=== PATIENT | female | born 1955 | race Caucasian/White ===

== ENCOUNTER 2018-08-30 23:43 | Emergency (ER) | payer OTHER ==
[2018-08-31 00:14] LABS: ADD MAN DIFF? NO
[2018-08-31 00:16] LABS: BASOPHILS % 0.9 % (0.0-2.0); EOSINOPHILS # 0.1 10^3/ul (0.0-0.5); EOSINOPHILS % 2.7 % (0.0-7.0); HEMATOCRIT 34.4 % (37.0-47.0); HEMOGLOBIN 11.9 g/dl (12.0-16.0); LYMPHOCYTES # 0.7 10^3/ul (0.8-2.9); MEAN CORPUSCULAR HEMOGLOBIN 30.7 pg (29.0-33.0); MEAN CORPUSCULAR HGB CONC 34.6 g/dl (32.0-37.0); MEAN CORPUSCULAR VOLUME 88.9 fl (82.0-101.0); MEAN PLATELET VOLUME 11.4 fl (7.4-10.4); MONOCYTE # 0.4 10^3/ul (0.3-0.9); MONOCYTES % 11.8 % (0.0-11.0); NEUTROPHIL # 2.1 10^3/ul (1.6-7.5); NEUTROPHILS % 64.3 % (39.0-77.0); PLATELET COUNT 149 10^3/UL (140-415); RED BLOOD COUNT 3.87 10^6/ul (4.20-5.40); RED CELL DISTRIBUTION WIDTH 13.1 % (11.5-14.5)
[2018-08-31 00:16] LABS: WHITE BLOOD COUNT 3.3 10^3/ul (4.8-10.8)
[2018-08-31] MEDS: ONDANSETRON 4 MG INJ IV (00:17)
[2018-08-31] MEDS: SOD CHLORIDE 0.9% 500 ML IV (00:17)
[2018-08-31 00:34] LABS: ANION GAP 8 (5-13); BLOOD UREA NITROGEN 17 mg/dl (7-20); CARBON DIOXIDE 30 mmol/L (21-31); CHLORIDE 99 mmol/L (97-110); CREATININE 1.09 mg/dl (0.44-1.00); Estimated GFR 51 mL/min (>60); GLUCOSE 120 mg/dl (70-220); POTASSIUM 3.3 mmol/L (3.5-5.1); SODIUM 137 mmol/L (135-144)
[2018-08-31 00:45] LABS: TROPONIN-I < 0.012 ng/ml (0.000-0.120)
[2018-08-31] MEDS: IOHEXOL 100 ML (00:58)
[2018-08-31] MEDS: SOD CHLORIDE 0.9% 100 ML (00:58)
== END 2018-08-31 02:43 | disposition home or self-care (01) ==
LOC: E/R 23:43
DX: C78.00 Secondary malignant neoplasm of unspecified lung (principal); R91.1 Solitary pulmonary nodule; R11.2 Nausea with vomiting, unspecified; I10 Essential (primary) hypertension; Z85.42 Personal history of malignant neoplasm of other parts of uterus
CPT/HCPCS: 36415; 70450; 71045; 71275; 80048; 84484; 85025; 93005; 96374; 99285-25